=== PATIENT | male | born 1965 | race Hispanic/Latino ===

== ENCOUNTER → 2017-05-06 | Outpatient (CLI) | payer MEDICARE | END | disposition home or self-care (01) | LOC: YCFC.O 07:06 | PROVIDERS: ATTEND Nurse Practitioner Family | DX: I10 Essential (primary) hypertension (principal); E11.9 Type 2 diabetes mellitus without complications ==

== ENCOUNTER → 2018-06-30 | Outpatient (CLI) | payer MEDICARE | LOC: LAB.O 06:28 | PROVIDERS: ATTEND Nurse Practitioner Family | DX: E11.9 Type 2 diabetes mellitus without complications (principal); I10 Essential (primary) hypertension ==

== ENCOUNTER → 2018-07-02 | Outpatient (CLI) | payer MEDICARE | LOC: YCFC.O 09:31 | PROVIDERS: ATTEND Nurse Practitioner Family | DX: E78.2 Mixed hyperlipidemia (principal) ==

== ENCOUNTER → 2019-01-18 | Outpatient (CLI) | payer OTHER ==
--- NOTE | 2019-01-19 07:10 | RAD ---
EXAM DESCRIPTION: Chest,2 Views CLINICAL HISTORY: SOB COMPARISON: Previous study June 28, 2016 TECHNIQUE: PA/lateral FINDINGS: Heart size is prominent with normal pulmonary vascularity. Density over the left lower lung zone is likely overlying soft tissue, similar to previous study. No air bronchograms to suggest acute infiltrate. No pleural effusion or pneumothorax. Lungs are clear with no consolidating infiltrate. Lateral view shows intact sternum and T-spine. No evidence of infiltrate on the lateral view. IMPRESSION: No acute process is identified in the chest. 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
== END ==
LOC: YCFC.O 17:44
PROVIDERS: ATTEND Nurse Practitioner Family
DX: R06.02 Shortness of breath (principal)

== ENCOUNTER → 2020-07-10 | Outpatient (CLI) | payer OTHER | LOC: YCFC.O 07:06 | PROVIDERS: ATTEND Family Medicine | DX: I10 Essential (primary) hypertension (principal); E78.5 Hyperlipidemia, unspecified; E11.9 Type 2 diabetes mellitus without complications ==

== ENCOUNTER → 2020-10-19 | Outpatient (CLI) | payer SELFPAY | LOC: YCFC.O 17:15 | PROVIDERS: ATTEND Family Medicine | DX: R31.0 Gross hematuria (principal) ==